=== PATIENT | female | born 1950 | race Caucasian/White ===

== ENCOUNTER 2018-03-11 19:08 | Emergency (ER) | payer OTHER, MEDICARE ==
[~2018-03-11] VITALS: Ht 170.2 cm; Wt 99.0 kg
[2018-03-11 19:13] VITALS: BP 154/91
[2018-03-11] MEDS ORDERED: LIDOCAINE-MPF 1%, 5ML ONE ×2 (19:21→19:51)
[2018-03-11] MEDS ORDERED: LIDOCAINE-MPF 1%, 5ML INFIL ONE (19:30)
== END 2018-03-11 20:19 | disposition home or self-care (01) ==
LOC: ED 20:13
DX: S61.211A Laceration without foreign body of left index finger without damage to nail, initial encounter (principal); W26.0XXA Contact with knife, initial encounter; Y93.G3 Activity, cooking and baking; Y92.89 Other specified places as the place of occurrence of the external cause; Y99.8 Other external cause status
CPT/HCPCS: 12001; 99283